=== PATIENT | male | born 1965 | race Caucasian/White ===

== ENCOUNTER 2021-08-16 09:44 | Emergency (ER) | payer OTHER ==
[~2021-08-16] VITALS: Ht 177.8 cm; Wt 66.8 kg
[2021-08-16 09:49] VITALS: BP 124/82
[2021-08-16] MEDS ORDERED: LIDOcaine 1% 30ml preserv. free vial IJ STA (09:59)
== END 2021-08-16 11:12 | disposition home or self-care (01) ==
LOC: ER 09:44
DX: S63.281A Dislocation of proximal interphalangeal joint of left index finger, initial encounter (principal); W50.2XXA Accidental twist by another person, initial encounter; Y93.89 Activity, other specified; Y92.89 Other specified places as the place of occurrence of the external cause; Y99.8 Other external cause status
CPT/HCPCS: 26770; 73130; 73140; 99284